=== PATIENT | female | born 1990 | race African-American/Black ===

== ENCOUNTER 2016-04-14 18:25 | Emergency (ER) | payer OTHER ==
[~2016-04-14] VITALS: Ht 152.4 cm; Wt 68.2 kg
[2016-04-14 18:27] VITALS: BP 131/69; PULSE 86; RESP 24; TEMP 98.2; O2SAT 100
[2016-04-14 20:03] LABS: BACTERIA, URINE RARE /hpf; BLOOD, URINE NEG (NEG); COMMENT (UR) CULT NOT INDICATED; CULTURE IF INDICATED CULT NOT INDICATED; GLUCOSE,URINE NEG (NEG); KETONE, URINE NEG (NEG); MUCUS URINE FEW /lpf (OCC); NITRITE,URINE NEG (NEG); PH, URINE 6.5 (5.0-8.5); SQUAMOUS EPITHELIAL CELL URINE 3 /hpf (0-5); URINE COLOR YELLOW (YELLW/STRAW)
[2016-05-23] MEDS ORDERED: PREN29TA PO (14:02)
== END 2016-04-15 01:45 | disposition left against medical advice (07) ==
LOC: NED 18:25
DX: R10.9 Unspecified abdominal pain (principal)
CPT/HCPCS: 81001; 84703; 99281

== ENCOUNTER → 2016-05-26 | Day surgery (SDC) | payer MEDICAID, OTHER ==
[~2016-05-26] MED LIST: *ONDANSETRON 4 MG VIAL PERIprocedural Use ONLY ONE; *PROMETHAZINE 25 MG/ML VIAL PERIprocedural use ONLY ONE; CEPH-460 PO; DO NOT ADM ANY ANTICOAGULANT DRUGS XX PRN; LACTATED RINGER'S 1000 ML INJ 1,000 ML IV ONE; LACTATED RINGER'S 1000 ML INJ 1,000 ML ONE; OXYC1TAB63 PO; PREN29TA PO
[2016-05-26 09:30] VITALS: BP 124/74; PULSE 79; RESP 20; TEMP 99.1; O2SAT 100
[2016-05-26 10:03] LABS: AUTOMATED NEUTROPHIL # 3.5 TH/MM3 (1.8-7.7); BASOPHIL # 0.1 TH/MM3 (0-0.2); BASOPHIL % 0.9 % (0.0-2.0); EOSINOPHIL # 0.1 TH/MM3 (0-0.4); EOSINOPHIL % 1.2 % (0.0-4.0); HEMATOCRIT 36.6 % (35.0-46.0); HEMO FLAGS DIFF FINAL; LYMPH % 34.4 % (9.0-44.0); LYMPHOCYTE # 2.3 TH/MM3 (1.0-4.8); MEAN CELL VOLUME 90.4 FL (80.0-100.0); MEAN CORPUSCULAR HEMOGLOBIN 30.2 PG (27.0-34.0); MEAN CORPUSCULAR HGB CONC 33.4 % (32.0-36.0); MONO % 11.5 % (0.0-8.0); PLATELET COUNT 245 TH/MM3 (150-450); RED BLOOD COUNT 4.05 MIL/MM3 (4.00-5.30); RED CELL DISTRIBUTION WIDTH 13.7 % (11.6-17.2); WHITE BLOOD COUNT 6.7 TH/MM3 (4.0-11.0)
[2016-05-26 14:41] VITALS: BP 110/69; PULSE 70; RESP 16; TEMP 98.4; O2SAT 100
--- NOTE | 2016-05-28 10:10 | MH ---
cc: SHELL MELENDEZ M.D. DATE OF ADMISSION: 05/26/2016 HISTORY OF PRESENT ILLNESS: The patient is a 25-year-old black female 4, para 0-1-2-0 at approximately 12 weeks and 1 day gestation who presents for an elective cerclage due to a suspicion of incompetent cervix. PAST MEDICAL HISTORY: Negative. PAST SURGICAL HISTORY: Negative. MEDICATIONS: vitamins. ALLERGIES: None. SOCIAL HISTORY: No tobacco, alcohol or drug use. She lives with her family. GYNECOLOGIC HISTORY: She has no abnormal Pap. She does have a history of PID in the past. OBSTETRICAL HISTORY: In 2004, she had an elective termination. In 2006 she had a 14-week miscarriage and she did have a D&C with that. In 2011, she had a vaginal delivery at 25 weeks with a nonviable fetus. She had premature rupture of the membranes. She is not sure if her dating was correct. PHYSICAL EXAMINATION: VITAL SIGNS: Her blood pressure is 120/70, pulse of 70. WEIGHT: 151. BREASTS: Without masses, nodes or discharge. CHEST: Clear to auscultation bilaterally. CARDIAC: Regular rate and rhythm without murmurs, rubs or gallops. ABDOMEN: The abdomen is soft, nontender and nondistended. No hepatosplenomegaly. (dictation stopped here) MD LUCY Cai/MICHAEL /3:47 PM /10:10 AM
--- NOTE | 2016-05-28 12:54 | MP ---
cc: SHELL KITCHEN M.D. DATE OF SURGERY 05/26/2016 PREOPERATIVE DIAGNOSIS Intrauterine at 12+ weeks gestation with incompetent cervix. POSTOPERATIVE DIAGNOSIS Intrauterine at 12+ weeks gestation with incompetent cervix. PROCEDURE PERFORMED Quiros cerclage placement. METAL SPRAYER PROTECTIVE COATING SURGEON Dr. Shell Kitchen ANESTHESIA Spinal Dr. Conrad FINDINGS AT SURGERY Included a normal appearing vaginal vault. The uterus was about 12-14 weeks size and a cervix that has a soft consistency when the os is closed. BLOOD LOSS Minimal COMPLICATIONS None PROCEDURE IN DETAIL After proper consents were obtained, the patient was taken to the operating room where a spinal anesthetic was placed. She was then placed in the dorsolithotomy position, sterilely prepped and draped. She did emptied her bladder prior to surgery. We went ahead and placed a weighted speculum in the vaginal vault, grasped the anterior lip of the cervix using a long Allis. I then used a Mersilene band and placed a suture from 12-9 o'clock, from 9-6 o'clock, from 6-3 o'clock, and 3-12 o'clock, and I then tied the suture about eight throes closing up the cervix. We trimmed off the needle. Hemostasis was assured. Instruments were removed. Counts were correct and the patient was stable to the recovery room. MD LUCY Cai/JOSE ELIAS /4:04 PM /12:45 PM
== END | disposition home or self-care (01) ==
LOC: HSDC 08:43
PROVIDERS: ATTEND Obstetrics & Gynecology
DX: O34.31 Maternal care for cervical incompetence, first trimester (principal); Z3A.12 12 weeks gestation of pregnancy
CPT/HCPCS: 00948; 59320; 85025; J2405; J2550; J7120

== ENCOUNTER 2016-07-02 20:33 | Emergency (ER) | payer MEDICAID, OTHER ==
[~2016-07-02 20:33] MED LIST changes: -*ONDANSETRON 4 MG VIAL PERIprocedural Use ONLY ONE; -*PROMETHAZINE 25 MG/ML VIAL PERIprocedural use ONLY ONE; -CEPH-460 PO; -DO NOT ADM ANY ANTICOAGULANT DRUGS XX PRN; -LACTATED RINGER'S 1000 ML INJ 1,000 ML IV ONE; -LACTATED RINGER'S 1000 ML INJ 1,000 ML ONE; -OXYC1TAB63 PO
--- NOTE | 2016-07-02 21:17 | PD ---
HPI Chief Complaint spotting Date Seen: Jul 02, 2016 (Henry Velazquez MD R2) Travel History International Travel<30 Days: No Contact w/Intl Traveler<30Days: No (Henry Velazquez MD R2) History of Present Illness HPI Ms. Waite is a [address] Kitchen at 17 6/7 weeks (SHIRIN 2016) who presents with vaginal spotting. Patient states this has been present for approximately 3 hours and started shortly after sexual intercourse. Volume of vaginal bleeding slightly; no significant bleeding. Patient reports mild pelvic pain but states that she thinks it secondary to holding her bladder for significant duration while driving to [facility] from [place]. No abdominal pain. Patient does not report headache, vision changes, shortness of breath, chest pain, dysuria, or leg swelling. Patient reports cerclage placed at 12 weeks for 3 prior spontaneous abortions/ stillbirths; her most recent was at 21 weeks she does not remember the gestational age of other 2. Patient states this was for sexual activity since placement of cerclage. Patient reports reassuring ultrasound recently with cervical length of approximately 3 cm and reassuring labs. Para: 0 : 4 (Henry Velazquez MD R2) History Obstetric History Obstetric History Most recently stillbirth at 21 weeks; unknown age of demise of prior gestations (Henry Velazquez MD R2) Past Surgical History Narrative Surgical Cerclage at 12 weeks GA (Henry Velazquez MD R2) Family History Family History: Negative (Henry Velazquez MD R2) Social History Narrative Social History Patient denies smoking, drinking, illicit drugs Alcohol Use: No Tobacco Use: No Substance Abuse: No (Henry Velazquez MD R2) Allergies-Medications (Allergen,Severity, Reaction): Coded Allergies: No Known Allergies (Unverified , 05/23/16) Home Meds Reported Medications Vit-Iron Carbonyl ( Plus Iron 29-1 mg)1 Tab Tab1 Tab PO DAILY #30 TAB Ref 0 05/23/16 Review of Systems General / Constitutional: No: Fever, Chills HENT: No: Lightheadedness Cardiovascular: No: Chest Pain or Discomfort, Palpitations Respiratory: No: Cough, Short of Breath Gastrointestinal: No: Nausea, Vomiting, Diarrhea, Abdominal Pain Genitourinary: Vaginal Bleeding, No: Urgency, Frequency, Dysuria, Discharge Musculoskeletal: No: Limited ROM, Weakness Skin: No Rash, No Itching, No Lesions Neurologic: No: Dizziness, Focal Abnormalities (Yenny Benton MD) Physical Exam RR 18 BP 117/63 HR 85 Narrative GENERAL: Well-nourished, well-developed patient. SKIN: Warm and dry. HEAD: Normocephalic and atraumatic. EYES: No scleral icterus. No injection or drainage. ENT: No nasal drainage noted. Mucous membranes pink. Airway patent. NECK: Supple, trachea midline. No JVD. CARDIOVASCULAR: Regular rate and rhythm without murmurs, gallops, or rubs. RESPIRATORY: CTAB, normal rate ABDOMEN/GI: Abdomen soft, non-tender, bowel sounds present, no rebound, no guarding Gravid EXTREMITIES: No cyanosis or edema. BACK: Nontender without obvious deformity. No CVA tenderness. NEUROLOGICAL: Awake and alert. Motor and sensory grossly within normal limits. Five out of 5 muscle strength in all muscle groups. Normal speech. GENITOURINARY: Exam performed by Dr. Benton FHT's: FHR 160 No contractions on EFM (Henry Velazquez MD R2) Narrative ABD soft NT Gravid, NT SSE: Cervix closed with intact cerclage. Knot on anterior cervix with small tear. No active bleeding at this time. No discharge, no pool or fluid noted. +FHR TOCO: NO UC (Yenny Benton MD) MDM Medical Record Reviewed: Yes Narrative Course / MDM [address] Kitchen at 17 6/7 weeks (SHIRIN 12/04/2016) -PSH of cerclage placement at 12 weeks GA for history of spontaneous / stillbirth -Mild vaginal spotting this evening for approximately 3 hours following sexual intercourse -Normal heart rhythm Plan: -Examination performed by Dr. Benton- cerclage in place; suspect slight tearing of cervix at placement of not without compromising cerclage Due to lack of overt vaginal bleeding and reassuring status, patient deemed stable for discharge home and routine follow-up with Dr. Kitchen (Henry Velazquez MD R2) Attending Attestation 25 yo @ 17w6d with hx of incompetent cervix. s/p cerclage @ 12 weeks. Patient had normal US today with normal cervical length. spotting after intercourse this evening Exam with noted small tear at knot of cerclage where bleeding has now stopped. Pelvic rest F/u with Dr. Kitchen. (Yenny Benton MD) Diagnosis Diagnosis: Primary Impression: Vaginal bleeding in patient at less than 20 weeks gestation Additional Impressions: PCB (post coital bleeding) Cervical cerclage suture present in second trimester 17 weeks gestation of Disposition: 01 DISCHARGE HOME Condition: Good Henry Velazquez MD R2 Jul 02, 2016 21:17 Yenny Benton MD Jul 02, 2016 21:43
== END 2016-07-03 01:40 | disposition home or self-care (01) ==
LOC: HOBED 20:33
DX: O26.852 Spotting complicating pregnancy, second trimester (principal); O34.32 Maternal care for cervical incompetence, second trimester; N93.0 Postcoital and contact bleeding; Z3A.17 17 weeks gestation of pregnancy
CPT/HCPCS: 99283

== ENCOUNTER 2016-07-17 21:32 | Emergency (ER) | payer MEDICAID, OTHER ==
[2016-07-17 22:10] LABS: BACTERIA, URINE RARE /hpf; BLOOD, URINE TRACE (NEG); COMMENT (UR) CULTURE INDICATED; CULTURE IF INDICATED CULTURE INDICATED; GLUCOSE,URINE NEG (NEG); KETONE, URINE NEG (NEG); NITRITE,URINE NEG (NEG); PH, URINE 6.5 (5.0-8.5); SQUAMOUS EPITHELIAL CELL URINE 1 /hpf (0-5); URINE COLOR LIGHT-YELLOW (YELLW/STRAW)
--- NOTE | 2016-07-18 12:18 | MH ---
cc: JOSE ELIAS WEEKS DATE OF ADMISSION: 07/17/2016 HISTORY OF PRESENT ILLNESS The patient is a 25-year-old 4, para 0-0-3-0 presents at 20 weeks and has an EDC of 12/04/2016, complaining of pelvic pain and watery vaginal discharge. The patient has prior history of three prior miscarriages and had a cerclage placed with this . The patient is very concerned there could be a problem with the . She has not yet felt movement. She denies any sort of trauma or intercourse. She denies vaginal bleeding. She denies back pain. She does admit that she has gone to the bathroom and passes urine frequently. Denies pain with urination. She moves her bowels regularly. No nausea, no vomiting, no sick contacts. REVIEW OF SYSTEMS Review of all of her systems is negative. PAST MEDICAL HISTORY Negative. PAST SURGICAL HISTORY Cerclage 05/2016. OB HISTORY She had the three prior second trimester losses, the last one at 21 weeks. SOCIAL HISTORY Negative for cigarettes, alcohol or street drugs. The patient is . ALLERGIES None. MEDICATIONS vitamins. PHYSICAL EXAMINATION VITAL SIGNS: She is afebrile. Her vitals are all stable. HEART: Regular rate and rhythm. LUNGS: Clear to auscultation bilaterally. ABDOMEN: Soft, non-tender, non-distended. There is no rebound, no guarding, no rigidity. Her fundus is firm and nontender. LOWER EXTREMITIES: Nontender, nonedematous. PELVIC: On speculum exam, the cerclage is noted to be intact and the cervix is clear. There is a yellowish-white discharge noted. There is no pooling that is noted and no bleeding is noted as well. On bimanual exam the cervix is closed and the cerclage is intact. heart rate is approximately 150. The tocometer is quiet. LABORATORY DATA Her urine returned with a large amount of leukocyte esterase and bacteria with one squamous cell. Trace occult blood was also noted. Nitrites were negative. Her amnisure is negative. Her vaginal swabs for yeast, BV and trich were negative. ASSESSMENT Intrauterine at 28+ weeks with abdominal pain mostly secondary to UTI. PLAN We will discharge home with prescription for antibiotics to treat the UTI. Aggressive PO hydration was encouraged along with taking antibiotics. She is to return to Dr. Kitchen as scheduled. She is to call if there are any problems. MD ZAID Kirby/NAYELI /12:24 AM /12:02 PM
== END 2016-07-17 22:48 | disposition home or self-care (01) ==
LOC: HOBED 21:32
DX: O23.42 Unspecified infection of urinary tract in pregnancy, second trimester (principal); O26.22 Pregnancy care for patient with recurrent pregnancy loss, second trimester; Z3A.20 20 weeks gestation of pregnancy
CPT/HCPCS: 81001; 84112; 87086; 87210; 99284

== ENCOUNTER 2016-07-18 15:12 | Inpatient (IN) | payer MEDICAID ==
[~2016-07-18] VITALS: Ht 154.9 cm; Wt 72.1 kg
[2016-07-18] MEDS ORDERED: SODIUM CHLORIDE 0.9% FLUSH 10 ML FLUSH IV FLUSH PRN (15:45)
--- NOTE | 2016-07-18 15:58 | PD ---
History of Present Illness History of Present Illness HPI HPI Travel History International Travel<30 Days: No Contact w/Intl Traveler<30Days: No Known Affected Area: No History of Present Illness HPI This patient is a 25-year-old 4 para 0030 EDC is December 04, 2016 at 20 weeks and 2 days she is status post cerclage placement at 12 weeks she presents with a chief complaint of uterine contractions. Patient states that she began having lower abdominal pain yesterday she was seen in the triage area where she was treated for urinary tract infection and discharged home began having watery discharge mucoid discharge today associated with crampy lower abdominal pain every 4-5 minutes Increase in the cramping and pressure in her vagina care with Dr. Blue course is significant for previous losses 3 History (Limited) History Past Medical History Narrative Medical No known drug allergies no major medical problems Obstetric History Obstetric History Patient has had 2 spontaneous AB A second trimester loss with her last Past Surgical History Narrative Surgical Cerclage placement at 12 weeks Family History Narrative Family History Noncontributory Social History Alcohol Use: No Tobacco Use: No Substance Abuse: No Allergies-Medications Allergies-Medications (Allergen,Severity, Reaction): Coded Allergies: No Known Allergies (Unverified , 05/23/16) Home Meds Reported Medications Vit-Iron Carbonyl ( Plus Iron 29-1 mg)1 Tab Tab1 Tab PO DAILY #30 TAB Ref 0 05/23/16 ROS Review of Systems General / Constitutional: No: Fever, Weight Gain, Weight Loss, Chills, Other Eyes: No: Diploplia, Blurred Vision, Visual changes, Pain, Photophobia, Other HENT: No: Headaches, Vertigo, Dental Difficulties, Lightheadedness, Other Cardiovascular: No: Irregular Rhythm, Chest Pain or Discomfort, Palpitations, Tachycardia, Syncope, Varicosities, Edema, Cyanosis, Other Respiratory: No: Cough, Short of Breath, Wheezing, Other Gastrointestinal: Abdominal Pain (crampy lower abdominal pain) Genitourinary: Vaginal Bleeding (watery vaginal discharge) Musculoskeletal: No: Limited ROM, Weakness, Cramping, Edema, Pain, Other Skin: No Rash, No Itching, No Dryness, No Lumps, No Change in Pigmentation, No Change in Nails, No Alopecia, No Lesions, No Breast Lumps, No Breast Tenderness , No Breast Swelling, No Other Neurologic: No: Weakness, Dizziness, Syncope, Focal Abnormalities, Coordination Problem, Headache, Slurred Speech, Seizures, Other Physical Exam Physical Exam Narrative GENERAL: Well-nourished, well-developed patient. Patient is alert oriented 3 and cooperative in moderate distress secondary to painus membranes pink. Airway patent. CARDIOVASCULAR: Regular rate and rhythm without murmurs, gallops, or rubs. RESPIRATORY: Breath sounds equal bilaterally. No accessory muscle use. ABDOMEN/GI: Abdomen is gravid consistent with approximately 20 weeks mild tenderness in the suprapubic area no epigastric or right upper quadrant tenderness Gravid to [-] weeks size 20 weeks size Fundal Height: [-] GENITOURINARY: Speculum exam is done she has a watery bloody discharge in the vault amnisure is negative External Genitalia: intact and normal in appearance BUS glands: [-] Cervix: [-] Cervix appears to be midline Dilatation: [-] The cerclage is in place however right at the external os he can see membranes cervix is less than 1 cm dilated Effacement: [-] Cerclage in place Station: [-] Presentation: [-] Breech presentation Membranes: [intact amnisure is negative Uterine Contractions: [-] Monitor does not show lucien contractions rather irritability FHT's: Category: [-] Baseline: [-] 172 by ultrasound Reactive: [-] Variability: [-] Decels: [-] EXTREMITIES: No cyanosis or edema. 2+ reflexes NEUROLOGICAL: Awake and alert. Motor and sensory grossly within normal limits. Five out of 5 muscle strength in all muscle groups. Normal speech. Data Data Data Vital Signs Reviewed: Yes (blood pressures 124/74 pulse 92 temperature is 98.8 respiration is 20) Orders Admit To Inpatient (07/18/16 ) Diet Liquid (07/18/16 Dinner) Vital Signs (Adult) [id number] AWAKE (07/18/16 15:40) Heart (07/18/16 15:40) Activity Bed Rest With Brp (07/18/16 15:40) Complete Blood Count With Diff (07/18/16 15:40) Urinalysis - C+S If Indicated (07/18/16 15:40) Lactated Ringer's 1000 Ml Inj (Lr 1000 M (07/18/16 15:40) Acetaminophen (Tylenol) (07/18/16 15:45) Sodium Chloride 0.9% Flush (Ns Flush) (07/18/16 21:00) Sodium Chloride 0.9% Flush (Ns Flush) (07/18/16 15:45) Zolpidem (Ambien) (07/18/16 15:45) Ondansetron Inj (Zofran Inj) (07/18/16 15:45) Ob/Psych Drug Screen, Urine (07/18/16 15:40) Hold Clot (07/18/16 15:40) Ceftriaxone Inj (Rocephin Inj) (07/18/16 15:45) Comprehensive Metabolic Panel (07/18/16 15:40) Fentanyl Inj (Fentanyl Inj) (07/18/16 15:45) Labs Bedside ultrasound is done Baby is in the breech presentation Largest pocket is 5 x 5 cm Posterior grade 1 placenta no abruption no previa heart rates in the 170s baby is moving and active Appears to be some funneling at the internal os Unable to measure cervical length OB Assessment/Plan Assessment/Plan Assessment and Plan Assessment 25-year-old G4 P 0 Cerclage placement contractions No clinical evidence of ruptured membranes Plan Admit IV fluid hydration CBC CMP urinalysis urine drug screen Fentanyl for pain Rocephin 2 g IV every 24 hours for UTI that was diagnosed yesterday Spoke with Dr. Blue she agrees with the plan States no tocolyse this at this particular point to start with IV hydration pain medication Obtain labs and reevaluate Jessica Gerber MD July 18, 2016 15:56 Jessica Gerber MD July 18, 2016 15:58
[2016-07-18] MEDS ORDERED: ZOLPIDEM TARTRATE 5 MG TAB PO PRN (16:00)
[2016-07-18] MEDS: LACTATED RINGER'S 1000 ML INJ 1,000 ML IV SCH (16:00)
[2016-07-18] MEDS ORDERED: ACETAMINOPHEN 325 MG TAB PO PRN (16:00)
[2016-07-18 16:21] LABS: AUTOMATED NEUTROPHIL # 16.6 TH/MM3 (1.8-7.7); BASOPHIL % 0.2 % (0.0-2.0); HEMATOCRIT 36.8 % (35.0-46.0); HEMO FLAGS DIFF FINAL; LYMPH % 6.5 % (9.0-44.0); LYMPHOCYTE # 1.3 TH/MM3 (1.0-4.8); MEAN CELL VOLUME 90.3 FL (80.0-100.0); MEAN CORPUSCULAR HEMOGLOBIN 30.2 PG (27.0-34.0); MEAN CORPUSCULAR HGB CONC 33.4 % (32.0-36.0); MONO % 7.8 % (0.0-8.0); NEUT % 85.5 % (16.0-70.0); PLATELET COUNT 272 TH/MM3 (150-450); RED BLOOD COUNT 4.07 MIL/MM3 (4.00-5.30); RED CELL DISTRIBUTION WIDTH 13.8 % (11.6-17.2); WHITE BLOOD COUNT 19.4 TH/MM3 (4.0-11.0)
[2016-07-18 16:40] LABS: ALKALINE PHOSPHATASE 103 U/L (45-117); TOTAL BILIRUBIN ADULT 0.5 MG/DL (0.2-1.0)
[2016-07-18 16:41] LABS: ALT (GPT) 37 U/L (10-53); ANION GAP 13 MEQ/L (5-15); AST (GOT) 32 U/L (15-37); BICARBONATE 21.2 MEQ/L (21.0-32.0); BLOOD UREA NITROGEN 4 MG/DL (7-18); CHLORIDE 104 MEQ/L (98-107); GLOMERULAR FILTRATION RATE 183 ML/MIN (>89); POTASSIUM 3.5 MEQ/L (3.5-5.1); SODIUM (NA) 138 MEQ/L (136-145)
[2016-07-18] MEDS: cefTRIAXone INJ 2,000 MG in SODIUM CHLORIDE 0.9% INJ 100 ML IV SCH (17:00)
[2016-07-18 17:31] LABS: BLOOD, URINE NEG (NEG); COMMENT (UR) CULT NOT INDICATED; CULTURE IF INDICATED CULT NOT INDICATED; GLUCOSE,URINE NEG (NEG); KETONE, URINE 150 mg/dL (NEG); MUCUS URINE FEW /lpf (OCC); NITRITE,URINE NEG (NEG); URINE COLOR YELLOW (YELLW/STRAW)
[2016-07-18 18:21] LABS: AMPHETAMINE, URINE NEG (NEG); BARBITURATES, URINE NEG (NEG); COCAINE, URINE NEG (NEG)
[2016-07-18] MEDS ORDERED: NALOXONE HCL 0.4 MG/ML AMP IV PRN (19:00)
[2016-07-18] MEDS ORDERED: MORPHINE SULFATE 8 MG/ML INJ ONE (19:39)
[2016-07-18 19:52] VITALS: BP 119/60; PULSE 107
[2016-07-18] MEDS: ONDANSETRON HCL 4 MG/2 ML VIAL IV PRN (19:54)
[2016-07-18 20:00] VITALS: RESP 16; TEMP 99.9
[2016-07-18] MEDS: MORPHINE SULFATE 30 MG/30 ML PCA IV SCH (20:06)
[2016-07-18] MEDS: SODIUM CHLORIDE 0.9% FLUSH 10 ML FLUSH IV FLUSH SCH (21:00)
[2016-07-18] MEDS ORDERED: PCA - TOTAL MG MORPHINE DELIVERED PER SHIFT SCH (22:00)
[2016-07-18 23:21] VITALS: TEMP 102.4
[2016-07-18 23:23] VITALS: BP 115/59; PULSE 101
[2016-07-18 23:24] VITALS: RESP 18
[2016-07-19] VITALS (101 sets, daily range): BP systolic 91–144; BP diastolic 47–92; PULSE 100–128; RESP 1–18; TEMP 99.2–101.9
[2016-07-19] MEDS: LACTATED RINGER'S 1000 ML INJ 1,000 ML IV SCH ×2 (02:00→12:01)
--- NOTE | 2016-07-19 02:03 | HHI.PR ---
Subjective Remarks Patient with chorioamnioitis and WBC 19 K and now fever to 102. She has worsening contractions and pressure despite bedrest antibiotics and IV hydration Objective Vital Signs Date Time Temp Pulse Resp B/P Pulse Ox O2 Delivery O2 Flow Rate FiO2 07/18/16 23:24 18 07/18/16 23:23 101 115/59 07/18/16 23:21 102.4 07/18/16 20:06 16 07/18/16 20:00 99.9 16 07/18/16 19:52 119/60 07/18/16 19:52 107 07/18/16 18:00 20 Result Diagram: 07/18/16 1520 07/18/16 1520 Objective Remarks GENERAL: SKIN: Warm and dry. HEAD: Normocephalic. EYES: No scleral icterus. No injection or drainage. NECK: Supple, trachea midline. No JVD or lymphadenopathy. GASTROINTESTINAL: Abdomen soft, non-tender, nondistended. MUSCULOSKELETAL: No cyanosis, or edema. BACK: Nontender without obvious deformity. No CVA tenderness. CERVIX is 2 cm with bulging yellowish membranes at os Assessment and Plan Problem List: (1) Cervical cerclage suture present in second trimester Status: Acute (2) Chorioamnionitis in second trimester Status: Acute Plan: Cerclage removal and expectant management Noman Cook MD July 19, 2016 02:03
[2016-07-19] MEDS: MORPHINE SULFATE 30 MG/30 ML PCA IV SCH (05:13)
[2016-07-19 07:53] LABS: AUTOMATED NEUTROPHIL # 19.5 TH/MM3 (1.8-7.7); BASOPHIL # 0.1 TH/MM3 (0-0.2); BASOPHIL % 0.3 % (0.0-2.0); HEMATOCRIT 32.8 % (35.0-46.0); LYMPH % 8.6 % (9.0-44.0); MEAN CELL VOLUME 90.9 FL (80.0-100.0); MEAN CORPUSCULAR HEMOGLOBIN 29.6 PG (27.0-34.0); MEAN CORPUSCULAR HGB CONC 32.6 % (32.0-36.0); MONO % 9.1 % (0.0-8.0); PLATELET COUNT 230 TH/MM3 (150-450); RED CELL DISTRIBUTION WIDTH 14.1 % (11.6-17.2); WHITE BLOOD COUNT 23.7 TH/MM3 (4.0-11.0)
[2016-07-19 07:59] LABS: HEMO FLAGS AUTO DIFF
[2016-07-19 08:28] LABS: BANDS 20 % (0-6); NEUTROPHIL # MANUAL DIFF 21.3 TH/MM3 (1.8-7.7); OVALOCYTES 1+ (NORMAL); PLATELET ESTIMATE SMEAR NORMAL (NORMAL); PLATELET MORPHOLOGY NORMAL (NORMAL); POLYS (SEG NEUTROPHILS) 70 % (16-70); SCAN/DIFF FINAL DIFF MANUAL; WBC DIFF SAMPLE 100
[2016-07-19] MEDS ORDERED: fentaNYL 2MCG-BUPIV 0.125% INJ 100 ML ONE (08:40)
[2016-07-19] MEDS: SODIUM CHLORIDE 0.9% FLUSH 10 ML FLUSH IV FLUSH SCH ×2 (09:00→21:00)
--- NOTE | 2016-07-19 09:10 | PD.LABORPN ---
Subjective Subjective patient here for 20 week with cerclage that had to be removed for chorio and cvx 1 cm and fever to 102. Expectant management Objective Vital Signs Vital Signs Date Time Temp Pulse Resp B/P Pulse Ox O2 Delivery O2 Flow Rate FiO2 07/19/16 08:52 99.5 07/19/16 07:30 18 07/19/16 07:30 99.2 07/19/16 06:10 100.3 16 07/19/16 06:03 123 104/47 07/19/16 05:13 16 07/19/16 02:54 101.9 07/19/16 02:54 18 07/19/16 02:50 119 118/61 07/19/16 02:00 16 Objective Pelvic Exam: Cervix: [-] Dilatation: 1 Effacement: [-] Station: [-] Presentation: [-] Membranes: [intact or ruptured] Uterine Contractions: [-] FHT's: Category: present FHT Baseline: [-] Reactive: [-] Variability: [-] Decels: [-] Assessment/Plan Problem List: (1) Chorioamnionitis in second trimester Noman Cook MD July 19, 2016 09:10
[2016-07-19] MEDS ORDERED: ePHEDrine/NS 25 MG/5 ML SYR IV PRN (09:45)
[2016-07-19] MEDS ORDERED: DO NOT ADMINISTER ANTICOAGULANTS PRN (09:45)
[2016-07-19] MEDS ORDERED: NO SYSTEM NARCOTICS PRN (09:45)
[2016-07-19] MEDS: fentaNYL 2MCG-BUPIV 0.125% 100 ML EPIDURAL SCH ×2 (12:01→16:04)
[2016-07-19] MEDS: ONDANSETRON HCL 4 MG/2 ML VIAL IV PRN (13:14)
[2016-07-19] MEDS ORDERED: ACETAMINOPHEN 325 MG TAB PO PRN ×2 (15:45→22:00)
[2016-07-19] MEDS ORDERED: DIPHTH/TETANUS/ACEL PERTUSSIS (BOOSTER) 0.5 ML VIAL/PFS IM ONE (16:00)
[2016-07-19] MEDS ORDERED: MEASLES, MUMPS, RUBELLA VACCINE 0.5 ML VIAL SQ ONE (16:00)
[2016-07-19] MEDS: cefTRIAXone INJ 2,000 MG in SODIUM CHLORIDE 0.9% INJ 100 ML IV SCH (17:47)
[2016-07-19] MEDS ORDERED: OXYTOCIN 30 UNITS-500ML PREMIX 500 ML ONE (21:38)
[2016-07-19] MEDS ORDERED: IBUPROFEN 600 MG TAB PO PRN (22:00)
[2016-07-19] MEDS ORDERED: oxyCODONE/ACETAMINOPHEN 5 MG/325 MG TAB PO PRN ×2 (22:00)
[2016-07-19] MEDS ORDERED: ALUMINUM/MAGNESIUM/SIMETH 30 ML CUP PO PRN (22:00)
[2016-07-19] MEDS ORDERED: WITCH HAZEL 50%/GLYCERIN 12.5% 40 PAD JAR TOPICAL PRN (22:00)
[2016-07-19] MEDS ORDERED: BENZOCAINE 20% TOPICAL SPRAY 60 ML CAN TOPICAL PRN (22:00)
[2016-07-19] MEDS ORDERED: ZOLPIDEM TARTRATE 5 MG TAB PO PRN (22:00)
[2016-07-19] MEDS ORDERED: ONDANSETRON ODT 4 MG TAB PO PRN (22:00)
[2016-07-19] MEDS ORDERED: SODIUM CHLORIDE 0.9% FLUSH 10 ML FLUSH IV FLUSH PRN (22:00)
[2016-07-19] MEDS ORDERED: LORazepam 1 MG TAB PO PRN (22:00)
[2016-07-19] MEDS ORDERED: DOCUSATE SODIUM 50 MG/SENNA 8.6 MG TAB PO PRN (22:00)
--- NOTE | 2016-07-19 22:01 | PD.OB.DELI ---
Delivery Date: July 19, 2016 Anesthesia: Epidural Episiotomy: None Vaginal Delivery: Normal, Spontaneous Presentation: Breech Delayed cord clamping (45 sec): No Infant: Male Placenta: Spontaneous delivery, Intact, 3 vessel cord Laceration: No lacerations Additional Information 20 week loss of incompetent cervix with cerclage removed because of fever and chorioamnioitis 20 hours ago. Patient had 4 losses now between 19-21 weeks. Mother is holding baby until she is ready for us to take. Noman Cook MD July 19, 2016 22:01
[2016-07-20 01:44] VITALS: BP 101/67; PULSE 108
[2016-07-20 02:00] VITALS: RESP 18; TEMP 99.1
[2016-07-20] MEDS: fentaNYL 2MCG-BUPIV 0.125% 100 ML EPIDURAL SCH (05:22)
--- NOTE | 2016-07-20 08:35 | HHI.OB ---
Subjective Post Day: 1 Remarks Patient delivered 20 2/7 week demise yesterday. She is grieving normally. She had chorio with foul; smelling fluid. She is doing well with minimal bleeding and could go home if she has no more fever Objective Vitals/I&O Vital Signs Date Time Temp Pulse Resp B/P Pulse Ox O2 Delivery O2 Flow Rate FiO2 07/20/16 05:22 18 07/20/16 02:00 99.1 18 07/20/16 01:44 108 101/67 07/19/16 23:15 18 07/19/16 23:00 18 07/19/16 23:00 101 117/67 07/19/16 22:45 106 121/70 07/19/16 22:37 105 120/67 07/19/16 22:30 18 07/19/16 22:30 101.5 07/19/16 21:00 104 100/52 07/19/16 20:30 102 106/57 07/19/16 20:00 16 07/19/16 19:57 104 104/85 07/19/16 19:46 104 126/91 07/19/16 19:31 110 120/86 07/19/16 19:16 105 117/63 07/19/16 19:08 106 121/76 07/19/16 19:00 99.5 07/19/16 19:00 18 07/19/16 18:30 103 117/69 07/19/16 18:15 104 123/70 07/19/16 18:00 102 120/55 07/19/16 17:45 100 117/62 07/19/16 17:30 99.3 07/19/16 17:15 107 07/19/16 17:15 110/56 07/19/16 17:00 107 121/69 07/19/16 16:46 112 114/58 07/19/16 16:30 114 110/53 07/19/16 16:30 101.2 1 07/19/16 16:16 111 124/55 07/19/16 16:04 16 07/19/16 16:00 107 123/65 07/19/16 15:45 108 112/52 07/19/16 15:30 114 116/65 07/19/16 15:16 110 132/78 07/19/16 15:12 101.9 07/19/16 15:00 109 112/68 07/19/16 14:45 108 115/70 07/19/16 14:30 107 114/70 07/19/16 14:15 106 113/71 07/19/16 14:00 106 114/67 07/19/16 13:49 16 07/19/16 13:48 100.3 07/19/16 13:46 106 121/80 07/19/16 13:25 107 07/19/16 13:20 107 07/19/16 13:15 109 07/19/16 13:15 104 07/19/16 13:15 128/76 07/19/16 13:05 111 07/19/16 13:01 102 140/66 07/19/16 13:00 18 07/19/16 13:00 108 07/19/16 13:00 99.8 07/19/16 12:55 116 07/19/16 12:45 117 07/19/16 12:45 114 144/92 07/19/16 12:40 113 07/19/16 12:35 119 07/19/16 12:30 120 07/19/16 12:30 104 126/82 07/19/16 12:20 110 07/19/16 12:15 107 07/19/16 12:15 112 124/71 07/19/16 12:10 111 07/19/16 12:05 110 07/19/16 12:01 112 115/70 07/19/16 12:01 16 07/19/16 12:00 115 07/19/16 11:55 109 07/19/16 11:50 109 07/19/16 11:45 108 126/66 07/19/16 11:45 112 07/19/16 11:40 109 07/19/16 11:35 110 07/19/16 11:30 110 121/66 07/19/16 11:30 109 07/19/16 11:25 107 07/19/16 11:20 118 07/19/16 11:15 106 120/72 07/19/16 11:15 106 07/19/16 11:10 111 07/19/16 11:05 106 07/19/16 11:00 107 07/19/16 11:00 104 16 115/70 07/19/16 10:55 104 07/19/16 10:50 106 07/19/16 10:47 99.5 07/19/16 10:45 109 07/19/16 10:45 109 118/71 07/19/16 10:40 110 07/19/16 10:35 110 07/19/16 10:30 108 07/19/16 10:30 110 120/68 07/19/16 10:25 110 07/19/16 10:20 109 07/19/16 10:15 110 07/19/16 10:15 110 117/70 07/19/16 10:10 108 07/19/16 10:05 107 07/19/16 10:00 112 115/68 07/19/16 10:00 110 07/19/16 09:55 128 07/19/16 09:50 111 07/19/16 09:45 114 119/82 07/19/16 09:45 112 07/19/16 09:40 115 07/19/16 09:40 115 123/76 07/19/16 09:35 109 07/19/16 09:35 115 123/73 07/19/16 09:30 108 07/19/16 09:30 115 124/77 07/19/16 09:25 108 07/19/16 09:25 116 117/72 07/19/16 09:22 109 124/69 07/19/16 09:20 118 113/68 07/19/16 09:20 118 07/19/16 09:18 124 118/75 07/19/16 09:16 123 115/79 07/19/16 09:15 119 130/64 07/19/16 09:15 124 07/19/16 09:13 117 91/57 07/19/16 09:10 124 123/70 07/19/16 09:10 117 07/19/16 09:08 119 131/73 07/19/16 09:07 118 124/75 07/19/16 08:52 99.5 Objective Remarks GENERAL: Well-nourished, well-developed patient. . ABDOMEN/GI: Abdomen soft, non-tender. Fundus: Firm, non-tender at umbilicus. GENITOURINARY: Light to moderate bleeding. EXTREMITIES: No cyanosis or edema, non-tender, without signs of DVT. Medications and IVs Current Medications Medications (Trade) Dose Ordered Sig/Eric Route Start Time Stop Time Status Last Admin (Lr 1000 ml Inj) 1,000 ml @ 100 mls/hr Q10H IV 07/18/16 16:00 07/19/16 12:01 (Tylenol) 650 mg Q4H PRN PO 07/18/16 16:00 07/19/16 15:36 (NS Flush) 2 ml BID IV FLUSH 07/18/16 21:00 07/19/16 21:00 (NS Flush) 2 ml UNSCH PRN IV FLUSH 07/18/16 15:45 (Ambien) 5 mg HS PRN PO 07/18/16 16:00 Ondansetron HCl 4 mg 4 mg Q6H PRN IV 07/18/16 16:00 07/19/16 13:14 (Rocephin Inj/NS Inj) 100 ml @ 200 mls/hr Q24H IV 07/18/16 17:00 07/19/16 17:47 Miscellaneous Information No systemic narcotics to be given except... UNSCH PRN .XX 07/19/16 09:45 07/20/16 09:44 Miscellaneous Information DO NOT ADMINISTER ANY ANTICOAGUL... UNSCH PRN .XX 07/19/16 09:45 07/20/16 09:44 (fentaNYL 2MCG-BUPIV 0.125% INJ) 100 ml @ 0 mls/hr TITRATE EPIDURAL 07/19/16 09:45 07/20/16 05:22 (ePHEDrine/NS 25 MG/5 ML SYR) 10 mg UNSCH PRN IV 07/19/16 09:45 07/20/16 09:44 (Tylenol) 650 mg Q4H PRN PO 07/19/16 15:45 (NS Flush) 2 ml BID IV FLUSH 07/20/16 09:00 (NS Flush) 2 ml UNSCH PRN IV FLUSH 07/19/16 22:00 (Tylenol) 650 mg Q4H PRN PO 07/19/16 22:00 (Motrin) 600 mg Q6H PRN PO 07/19/16 22:00 (Percocet 5-325 Mg) 1 tab Q4H PRN PO 07/19/16 22:00 (Percocet 5-325 Mg) 2 tab Q4H PRN PO 07/19/16 22:00 (Americaine 20% Top Spr) 1 spray Q4H PRN TOPICAL 07/19/16 22:00 (Tucks Pads) 1 applic QID PRN TOPICAL 07/19/16 22:00 (Liberty-Colace) 2 tab Q12H PRN PO 07/19/16 22:00 (Ambien) 5 mg HS PRN PO 07/19/16 22:00 (Mag-Al Plus Susp Liq) 15 ml Q8H PRN PO 07/19/16 22:00 (Zofran Odt) 4 mg Q6H PRN PO 07/19/16 22:00 (Ativan) 1 mg Q6HR PRN PO 07/19/16 22:00 Assessment/Plan Problem List: (1) Chorioamnionitis in second trimester (2) Spontaneous vaginal delivery Assessment and Plan Assessment 25-year-old G4 P 0 Cerclage placement contractions No clinical evidence of ruptured membranes Plan Admit IV fluid hydration CBC CMP urinalysis urine drug screen Fentanyl for pain Rocephin 2 g IV every 24 hours for UTI that was diagnosed yesterday Spoke with Dr. Blue she agrees with the plan States no tocolyse this at this particular point to start with IV hydration pain medication Obtain labs and reevaluate Discharge Planning assess fever and DC home today if possible on antibiotics Noman Cook MD July 20, 2016 08:35
[2016-07-20 08:49] VITALS: BP 92/71; PULSE 87; RESP 16; TEMP 98.5
[2016-07-20] MEDS ORDERED: SODIUM CHLORIDE 0.9% FLUSH 10 ML FLUSH IV FLUSH SCH (09:00)
[2016-07-20 09:37] LABS: BASOPHIL # 0.1 TH/MM3 (0-0.2); BASOPHIL % 0.4 % (0.0-2.0); EOSINOPHIL # 0.1 TH/MM3 (0-0.4); EOSINOPHIL % 0.6 % (0.0-4.0); HEMATOCRIT 32.1 % (35.0-46.0); HEMO FLAGS DIFF FINAL; LYMPH % 13.5 % (9.0-44.0); LYMPHOCYTE # 2.6 TH/MM3 (1.0-4.8); MEAN CELL VOLUME 91.3 FL (80.0-100.0); MEAN CORPUSCULAR HEMOGLOBIN 29.7 PG (27.0-34.0); MEAN CORPUSCULAR HGB CONC 32.5 % (32.0-36.0); MONO % 8.7 % (0.0-8.0); NEUT % 76.8 % (16.0-70.0); PLATELET COUNT 215 TH/MM3 (150-450); RED BLOOD COUNT 3.52 MIL/MM3 (4.00-5.30); RED CELL DISTRIBUTION WIDTH 14.2 % (11.6-17.2); WHITE BLOOD COUNT 19.6 TH/MM3 (4.0-11.0)
[2016-07-20 11:00] VITALS: TEMP 97.6
--- NOTE | 2016-07-20 13:09 | HHI.DCPOC ---
Discharge Care Plan Diagnosis: (1) Spontaneous vaginal delivery Report Symptoms to Your Doctor -Temperate above 100.5 degrees -Redness, of incision or excessive or foul smelling drainage -Unusual pain or calf pain -Increased vaginal bleeding -Painful or difficulty urinating -Feelings of extreme sadness or anxiety after 2 weeks Goals to Promote Your Health * To prevent worsening of your condition and complications * To maintain your health at the optimal level Directions to Meet Your Goals Take your medications as prescribed Follow your dietary instruction Follow activity as directed Ensure plenty of rest for recovery Drink fluids for hydration Keep your appointments as scheduled Take your immunizations and boosters as scheduled If your symptoms worsen call your PCP, if no PCP go to Urgent Care Center or Emergency Room Smoking is Dangerous to Your Health. Avoid second hand smoke Call the 24-hour crisis hotline for domestic abuse at Noman Cook MD July 20, 2016 13:09
--- NOTE | 2016-07-20 13:14 | HHI.DS ---
Admission Date July 18, 2016 at 05:30 Discharge Date: July 20, 2016 Admitting Diagnosis Diagnosis: (1) Spontaneous vaginal delivery Diagnosis: Principal (2) Chorioamnionitis in second trimester Diagnosis: Principal Delivery Date: July 19, 2016 Vaginal Delivery: Normal Infant: Male Brief History This patient is a 25-year-old 4 para 0030 EDC is December 04, 2016 at 20 weeks and 2 days she is status post cerclage placement at 12 weeks she presents with a chief complaint of uterine contractions. Patient states that she began having lower abdominal pain yesterday she was seen in the triage area where she was treated for urinary tract infection and discharged home began having watery discharge mucoid discharge today associated with crampy lower abdominal pain every 4-5 minutes Increase in the cramping and pressure in her vagina care with Dr. Blue course is significant for previous losses 3 Hospital Course Patient had of nonviable baby at 20 weeks. She came in on 07/18/2016 with signs of chorio and had contractions then had to have cerclage removed with fever 102 and contractions. She had on 06/19 and is improving. She will go home on keflex and call for fever greater than 101 Pt Condition on Discharge: Good Discharge Disposition: Discharge Home Discharge Instructions Diet Instructions: As Tolerated, No Restrictions Activities You Can Perform: Regular-No Restrictions Noman Cook MD July 20, 2016 13:14
[2016-07-20] MEDS ORDERED: OXYC1TAB63 PO (13:16)
[2016-07-20] MEDS ORDERED: CEPH-460 PO (13:16)
[2016-07-24 11:51] LABS: HEROIN (6-ACETYLMORPHINE) UR NEG (NEG); OBMETHADONE UR NEG (NEG); PHENCYCLIDINE URINE NEG (NEG)
[2016-07-24 11:52] LABS: BATH SALTS (MDPV) UR NEG (NEG); ECSTASY (MDMA) UR NEG (NEG); GABAPENTIN UR NEG (NEG); HYDROMORPHONE U NEG (NEG); K2 SPICE UR NEG (NEG); OXYCODONE (PERCODAN) NEG (NEG)
== END 2016-07-20 14:00 | disposition home or self-care (01) | DRG 775 ==
LOC: HOBED 15:12 → H2EA 15:54 → OBSVTOIN 07-20 05:30
PROVIDERS: ADMIT Obstetrics & Gynecology; ATTEND Obstetrics & Gynecology
PROC: 10E0XZZ Delivery of Products of Conception, External Approach (ICD-10-PCS; principal; 2016-07-19)
PROC: 00HU33Z Insertion of Infusion Device into Spinal Canal, Percutaneous Approach (ICD-10-PCS; 2016-07-19)
PROC: 3E0R3CZ (ICD-10-PCS; 2016-07-19)
DX: O41.1220 Chorioamnionitis, second trimester, not applicable or unspecified (principal); O34.32 Maternal care for cervical incompetence, second trimester; O23.42 Unspecified infection of urinary tract in pregnancy, second trimester; O32.1XX0 Maternal care for breech presentation, not applicable or unspecified; Z37.1 Single stillbirth; Z3A.20 20 weeks gestation of pregnancy
CPT/HCPCS: 80053; 80307; 81001; 84112; 85007; 85025; 85027; 86850; 86900; 86901; 88305; 88307; 96360; G0481; J0696; J2270; J2405; J2590; J3010; J7120